=== PATIENT | male | born 1955 | race Caucasian/White ===

== ENCOUNTER 2018-01-17 08:26 | Day surgery (SDC) | payer OTHER ==
[2018-01-04 14:52] VITALS: BP 130/92
[~2018-01-17] VITALS: Ht 177.8 cm; Wt 91.5 kg
[~2018-01-17 08:26] MED LIST: ASCO1CAP2 PO; ASCO250T2 PO; BUPIVACAINE/PF-EPI 0.5% 1:200K ONE; MULT-224 PO; NAPR220C2 PO; VARE1TAB21 PO
[2018-01-17] MEDS ORDERED: LACTATED RINGERS 1,000 ML IV SCH (08:57)
[2018-01-17] MEDS ORDERED: ACETAMINOPHEN 500 MG TABLET PO ONE (09:00)
[2018-01-17] MEDS ORDERED: DIAZEPAM 5 MG TABLET PO ONE (09:00)
[2018-01-17] MEDS ORDERED: SCOPOLAMINE PATCH, 1.5MG PATCH.TD72 TD ONE (09:00)
[2018-01-17] MEDS ORDERED: ACET-1600 PO (09:21)
[2018-01-17] MEDS ORDERED: MIDAZOLAM 1 MG/ML, 2ML ONE (10:21)
[2018-01-17] MEDS ORDERED: FENTANYL PF 250 MCG/5ML ONE (10:21)
[2018-01-17] MEDS ORDERED: GLYCOPYRROLATE 0.2MG/1ML, 5ML ONE (10:22)
[2018-01-17] MEDS ORDERED: CEFAZOLIN 1,000 MG ONE (10:22)
[2018-01-17] MEDS ORDERED: NEOSTIGMINE 1 MG/ML, 10ML ONE (10:22)
[2018-01-17] MEDS ORDERED: ROCURONIUM 10MG/ML,5ML ONE (10:30)
[2018-01-17] MEDS ORDERED: PROPOFOL 10 MG/ML, 20ML ONE (10:30)
[2018-01-17] MEDS ORDERED: SUCCINYLCHOLINE 20 MG/ML, 10ML ONE (10:30)
[2018-01-17] MEDS ORDERED: ONDANSETRON 2MG/ML, 2ML ONE (10:30)
[2018-01-17] MEDS ORDERED: DEXAMETHASONE 4 MG/ML, 1ML ONE (10:30)
[2018-01-17] MEDS ORDERED: KETOROLAC 30 MG/1 ML ONE (10:41)
[2018-01-17] MEDS ORDERED: EPHEDRINE 50 MG/ML, 1ML IVPush PRN (11:00)
[2018-01-17] MEDS ORDERED: PROMETHAZINE 12.5 MG SUPP PR PRN (11:00)
[2018-01-17] MEDS ORDERED: HALOPERIDOL 5 MG/ML IV PRN (11:00)
[2018-01-17] MEDS ORDERED: hydrALAzine 20 MG/ML, 1ML IV PRN (11:00)
[2018-01-17] MEDS ORDERED: HYDROmorphone 2 MG/ML, 1ML IVPush PRN (11:00)
[2018-01-17] MEDS ORDERED: ONDANSETRON ODT 8 MG PO PRN (11:00)
[2018-01-17] MEDS ORDERED: LABETALOL 5MG/ML, 20ML IV PRN (11:00)
[2018-01-17] MEDS ORDERED: PROMETHAZINE 25 MG/ML, 1ML IV PRN (11:00)
[2018-01-17] MEDS ORDERED: OXYcodone 5 MG/5 ML ORAL.SOL UDC PO PRN ×2 (11:00→11:30)
[2018-01-17] MEDS ORDERED: MORPHINE SULFATE 4 MG/ML, 1ML IVPush PRN (11:00)
[2018-01-17] MEDS ORDERED: MIDAZOLAM 1 MG/ML, 2ML IV PRN (11:00)
[2018-01-17] MEDS ORDERED: ONDANSETRON 2MG/ML, 2ML IV PRN (11:00)
[2018-01-17] MEDS ORDERED: ALBUTEROL SULFATE 2.5 MG/3 ML NPPB PRN (11:00)
[2018-01-17] MEDS ORDERED: DIAZEPAM 5 MG/ML, 2ML IVPush PRN (11:00)
[2018-01-17] MEDS ORDERED: MEPERIDINE/PF 25MG/0.5ML IVPush PRN (11:00)
[2018-01-17] MEDS ORDERED: FENTANYL PF 100 MCG/2ML IV PRN (11:00)
[2018-01-17] MEDS ORDERED: OXYcodone 5 MG/5 ML ORAL.SOL UDC ONE (11:29)
== END 2018-01-17 14:20 | disposition home or self-care (01) ==
LOC: OUT 08:26
PROVIDERS: ATTEND Surgery
DX: K40.90 Unilateral inguinal hernia, without obstruction or gangrene, not specified as recurrent (principal); F17.210 Nicotine dependence, cigarettes, uncomplicated; J44.9 Chronic obstructive pulmonary disease, unspecified; I10 Essential (primary) hypertension; Z87.39 Personal history of other diseases of the musculoskeletal system and connective tissue
CPT/HCPCS: 49650; C1781; J0330; J0690; J1100; J1885; J2250; J2405; J2704; J2710; J3010; J3490; J7120; S2900